=== PATIENT | female | born 1990 ===

== ENCOUNTER 2018-05-31 01:36 | Emergency (ER) | payer SELFPAY ==
[~2018-05-31] VITALS: Ht 180.3 cm; Wt 79.1 kg
[2018-05-31 01:41] VITALS: Ht 180.3 cm; Wt 79.1 kg
== END 2018-05-31 02:44 | disposition left against medical advice (07) ==
LOC: FTE 01:36
DX: Z53.21 Procedure and treatment not carried out due to patient leaving prior to being seen by health care provider (principal)